=== PATIENT | female | born 1950 | race Caucasian/White ===

== ENCOUNTER → 2017-11-18 | Outpatient (CLI) | payer MEDICARE ==
[~2017-11-18] MED LIST: CETI10 PO; FLUT1SPR5 EACH NARE; LIPI40TA PO; LISI10TA3 PO; LISI40TA PO; TRAZ100T10 PO; ZOCO40TA PO; ZYRT10TA PO
[2017-11-18 11:03] LABS: AUTOMATED NEUTROPHIL # 3.1 TH/MM3 (1.8-7.7); BASOPHIL % 0.7 % (0.0-2.0); EOSINOPHIL # 0.3 TH/MM3 (0-0.4); EOSINOPHIL % 4.4 % (0.0-4.0); HEMATOCRIT 44.1 % (35.0-46.0); HEMOGLOBIN 14.7 GM/DL (11.6-15.3); LYMPH % 39.4 % (9.0-44.0); LYMPHOCYTE # 2.5 TH/MM3 (1.0-4.8); MEAN CELL VOLUME 88.4 FL (80.0-100.0); MEAN CORPUSCULAR HEMOGLOBIN 29.5 PG (27.0-34.0); MEAN CORPUSCULAR HGB CONC 33.3 % (32.0-36.0); MEAN PLATELET VOLUME 8.5 FL (7.0-11.0); MONO % 5.7 % (0.0-8.0); MONOCYTE # 0.4 TH/MM3 (0-0.9); NEUT % 49.8 % (16.0-70.0); PLATELET COUNT 238 TH/MM3 (150-450); RED BLOOD COUNT 4.99 MIL/MM3 (4.00-5.30); RED CELL DISTRIBUTION WIDTH 13.1 % (11.6-17.2); WHITE BLOOD COUNT 6.2 TH/MM3 (4.0-11.0)
[2017-11-18 12:36] LABS: BILIRUBIN, URINE NEG (NEG); BLOOD, URINE NEG (NEG); GLUCOSE,URINE NEG (NEG); KETONE, URINE NEG (NEG); NITRITE,URINE NEG (NEG); PH, URINE 6.5 (5.0-8.5); SQUAMOUS EPITHELIAL CELL URINE 1 /hpf (0-5); URINE COLOR LIGHT-YELLOW (YELLW/STRAW); URINE LEUKOCYTE ESTERASE NEG (NEG)
--- NOTE | 2017-11-19 16:14 | EKG ---
Date Performed: 11/18/2017 Time Performed: 10:53:44 PTAGE: 67 years EKG: SINUS BRADYCARDIA BORDERLINE ECG PREVIOUS TRACING : 11/02/2010 14.15 No significant change from previous tracing noted. DOCTOR: Trenton Gutierrez Interpretating Date/Time 11/19/2017 16:12:46
== END ==
LOC: CPRE 10:27
PROVIDERS: ATTEND Obstetrics & Gynecology
DX: Z01.810 Encounter for preprocedural cardiovascular examination (principal); Z01.812 Encounter for preprocedural laboratory examination; Z01.818 Encounter for other preprocedural examination; N81.9 Female genital prolapse, unspecified; R94.31 Abnormal electrocardiogram [ECG] [EKG]
CPT/HCPCS: 36415; 81001; 85025; 93005

== ENCOUNTER 2017-11-20 06:05 | Observation (INO) | payer MEDICARE ==
[~2017-11-20] VITALS: Ht 165.1 cm; Wt 76.0 kg
[~2017-11-20 06:05] MED LIST changes: -FLUT1SPR5 EACH NARE; -LISI40TA PO; -TRAZ100T10 PO; -ZOCO40TA PO; -ZYRT10TA PO
[2017-11-20] MEDS ORDERED: LACTATED RINGER'S 1000 ML IV PRN (06:30)
[2017-11-20] MEDS ORDERED: METOPROLOL TARTRATE 25 MG TAB PO PRN (06:30)
[2017-11-20] MEDS ORDERED: CHLORHEXIDINE GLUCONATE 2 % 1 PACK (2 CLOTHS) TOPICAL PRN (06:30)
[2017-11-20] MEDS ORDERED: POVIDONE IODINE 5% (ANTISEPSIS KIT) 4 APPLICATIONS EACH NARE PRN (06:30)
[2017-11-20] MEDS ORDERED: SODIUM CHLORID 0.9% 500 ML IV PRN (06:30)
[2017-11-20] MEDS ORDERED: TRAZ100T10 PO (06:48)
[2017-11-20] MEDS ORDERED: fentaNYL CITRATE 250 MCG/5 ML AMP ONE (07:00)
[2017-11-20] MEDS ORDERED: ACETAMINOPHEN 1000 MG/100 ML 100 ML IV ONE (07:00)
[2017-11-20] MEDS ORDERED: BUPIVACAINE HCL PF 0.5% 30 ML VIAL ONE (07:13)
[2017-11-20] MEDS ORDERED: GENTAMICIN SULFATE 80 MG/2 ML VIAL ONE (07:13)
[2017-11-20] MEDS ORDERED: ESTROGENS CONJUGATED VAG CREA 15 APPL/30 GM TUBE ONE (07:13)
[2017-11-20] MEDS ORDERED: MIDAZOLAM HCL 2 MG/2 ML VIAL ONE (07:33)
[2017-11-20] MEDS ORDERED: CEFAZOLIN INJ 2,000 MG in SODIUM CHLORIDE 0.9% INJ 100 ML IV ONE (08:00)
[2017-11-20] MEDS ORDERED: DO NOT ADM ANY ANTICOAGULANT DRUGS PRN (10:15)
[2017-11-20] MEDS ORDERED: SODIUM CHLORIDE 0.9% FLUSH 10 ML FLUSH IV FLUSH PRN (10:30)
[2017-11-20] MEDS ORDERED: ONDANSETRON HCL 4 MG/2 ML VIAL IVP PRN (10:30)
[2017-11-20] MEDS: LACTATED RINGER'S 1000 ML INJ 1,000 ML IV SCH ×2 (10:30→12:40)
[2017-11-20] MEDS ORDERED: SODIUM CHLORIDE 0.9% FLUSH 10 ML FLUSH IV FLUSH SCH (10:30)
[2017-11-20] MEDS: DOCUSATE SODIUM 100 MG CAP PO SCH ×2 (10:30→23:12)
[2017-11-20] MEDS ORDERED: *MEPERIDINE 25 MG INJ VIAL PERIprocedural Use ONLY ONE (10:39)
[2017-11-20] MEDS ORDERED: *ONDANSETRON 4 MG VIAL PERIprocedural Use ONLY ONE (10:39)
[2017-11-20] MEDS ORDERED: diphenhydrAMINE HCL 25 MG CAP PO PRN (10:45)
[2017-11-20] MEDS ORDERED: PROMETHAZINE HCL 25 MG TAB PO PRN (10:45)
[2017-11-20] MEDS ORDERED: PILL SPLITTER OTHER PRN (10:45)
[2017-11-20] MEDS ORDERED: LORazepam 0.5 MG TAB PO PRN (10:45)
--- NOTE | 2017-11-20 10:57 | MP ---
cc: Ralf Harrell MD DATE OF OPERATION: 11/20/2017 PREOPERATIVE DIAGNOSIS: Patient with symptomatic uterine prolapse with large cystocele, small rectocele. PROCEDURE: Transvaginal hysterectomy with anterior colporrhaphy, cystourethroscopy. POSTOPERATIVE DIAGNOSIS: Symptomatic uterine prolapse with large cystocele, small rectocele. SURGEON: MD Julio Cesar ANESTHESIA: General with endotracheal intubation. ESTIMATED BLOOD LOSS: 75 cc. DRAINS: Avila to gravity. OPERATIVE FINDINGS: The patient had complete uterine prolapse with significant atrophy. She had a grade 3 cystocele and a grade 1 rectocele. PROPHYLACTIC ANTIBIOTIC: The patient received Ancef 2 grams IV prior to the procedure. INDICATIONS FOR PROCEDURE: The patient with a known history of symptomatic prolapse, was tried on conservative management with use of the pessary. She declined after difficulty with use of the pessary and requested surgical repair. Risks, benefits, complications and failure were discussed. The patient was consented and signed the consent freely. PROCEDURE DESCRIPTION: The patient was taken to the operating room in stable condition and underwent general anesthesia with endotracheal intubation. She was carefully positioned in dorsal lithotomy position using candy cane stirrups. She had sequentials placed on lower extremities for VTE prophylaxis. She was prepped and draped. A timeout was conducted and agreed by all present in the room. Bimanual exam demonstrated the preoperative findings noted above. The patient had very minimal amount of prolapse posteriorly, significant amount of the prolapse was anterior compartment. After identifying the anatomic landmarks, the posterior cul-de-sac was entered, after elevating the cervix with a single-tooth tenaculum. A linear incision was made with a Bovie and entry into the cul-de-sac and the peritoneal cavity was made. Curved Narayan clamps were used to take the pedicles in a serial fashion bilaterally, each pedicle secured with a transfixing suture of 2-0 Vicryl. The anterior compartment was then entered. This allowed dissection of the uterine artery and vein bilaterally, again using curved Narayan clamps with a transfixing suture of 2-0 Vicryl and, then once the uterus was brought through the colporrhaphy incision, the uteroovarian pedicle was isolated. The ovaries were attached high in the pelvis and were not visible, which negated the ability to remove them vaginally. The pedicle was secured with a transfixing suture of 2-0 Vicryl and then the uterine specimen was passed off the operative field. All pedicle sites were dry. Examination of the cuff was dry. The peritoneum was then closed with a pursestring type suture using a 3-0 Vicryl to close the enterocele defect and then the vaginal cuff was closed with an interrupted suture of 2-0 Vicryl. The uterosacral ligaments were secured and reapproximated. For added support these were transfixed and tied together. The vaginal cuff was inspected. No active bleeding was noted. The anterior repair was then conducted. 0.25% plain Marcaine was used to inject subcutaneously. Then, a linear incision was made over the midline cystocele and then dissecting the vaginal mucosa away reducing the defect and then closing the defect with interrupted sutures of 2-0 Monocryl on a UR-6 needle. Reduction of the defect was complete without difficulty. Good result was noted. The redundant vaginal mucosa was trimmed and then the defect was closed with a running suture of 3-0 Vicryl. The vaginal cuff was dry. Again, irrigation was performed. No active bleeding or hematoma. The Avila catheter was removed. A 70-degree cystourethroscopy was then conducted using normal saline. Examination of the bladder was intact. No difficulty in the exam . Both ureteral orifices were peristalsing normally. The bladder was intact. The urethra was intact. There was no injury, laceration or suture placement. At the completion of the cystourethroscopy the Avila catheter was reinserted. A 2-inch vaginal packing with Premarin cream was placed in the vaginal vault at the end of the case. Final count was correct. The patient was stable, she was taken to the recovery on room air. MD BARRINGTON Glez/RUBEN , 10:17 AM , 10:55 AM
[2017-11-20] MEDS ORDERED: *PROMETHAZINE 25 MG/ML VIAL PERIprocedural use ONLY ONE (11:06)
[2017-11-20 11:52] VITALS: BP 101/49; PULSE 50; RESP 14; TEMP 97.6; O2SAT 95
[2017-11-20 12:43] VITALS: RESP 16
[2017-11-20] MEDS ORDERED: IBUPROFEN 600 MG TAB PO PRN (13:00)
[2017-11-20] MEDS: GABAPENTIN 100 MG CAP PO SCH ×2 (13:00→18:45)
[2017-11-20] MEDS ORDERED: ONDANSETRON HCL 4 MG/2 ML VIAL IV PUSH ONE (14:15)
[2017-11-20] MEDS: FAMOTIDINE 20 MG TAB PO SCH ×2 (14:24→23:13)
[2017-11-20] MEDS: KETOROLAC TROMETHAMINE 30 MG/ML (IVP) VIAL IVP PRN ×2 (16:10→23:14)
[2017-11-20 16:15] VITALS: BP 113/55; PULSE 59; RESP 16; TEMP 98; O2SAT 97
[2017-11-20 20:00] VITALS: BP 101/49; PULSE 70; RESP 17; TEMP 98.2
[2017-11-20] MEDS ORDERED: ZOLPIDEM TARTRATE 5 MG TAB PO PRN (21:00)
[2017-11-21 00:02] VITALS: BP 122/62; PULSE 64; RESP 17; TEMP 98.3
[2017-11-21 04:07] VITALS: BP 115/51; PULSE 67; RESP 18; TEMP 98.3
[2017-11-21] MEDS: KETOROLAC TROMETHAMINE 30 MG/ML (IVP) VIAL IVP PRN (05:01)
[2017-11-21 06:05] LABS: AUTOMATED NEUTROPHIL # 8.1 TH/MM3 (1.8-7.7); BASOPHIL % 0.2 % (0.0-2.0); EOSINOPHIL # 0.2 TH/MM3 (0-0.4); EOSINOPHIL % 1.6 % (0.0-4.0); HEMATOCRIT 38.7 % (35.0-46.0); HEMOGLOBIN 12.8 GM/DL (11.6-15.3); LYMPH % 20.4 % (9.0-44.0); LYMPHOCYTE # 2.3 TH/MM3 (1.0-4.8); MEAN CELL VOLUME 88.7 FL (80.0-100.0); MEAN CORPUSCULAR HEMOGLOBIN 29.3 PG (27.0-34.0); MEAN CORPUSCULAR HGB CONC 33.1 % (32.0-36.0); MEAN PLATELET VOLUME 8.9 FL (7.0-11.0); MONO % 5.9 % (0.0-8.0); MONOCYTE # 0.7 TH/MM3 (0-0.9); NEUT % 71.9 % (16.0-70.0); PLATELET COUNT 214 TH/MM3 (150-450); RED BLOOD COUNT 4.36 MIL/MM3 (4.00-5.30); RED CELL DISTRIBUTION WIDTH 13.1 % (11.6-17.2); WHITE BLOOD COUNT 11.3 TH/MM3 (4.0-11.0)
[2017-11-21 06:31] LABS: CREATININE 0.7 MG/DL (0.50-1.00)
[2017-11-21 08:13] VITALS: BP 139/60; PULSE 61; RESP 16; TEMP 97.6; O2SAT 96
[2017-11-21] MEDS: FAMOTIDINE 20 MG TAB PO SCH (08:52)
[2017-11-21] MEDS: GABAPENTIN 100 MG CAP PO SCH (08:52)
[2017-11-21] MEDS: DOCUSATE SODIUM 100 MG CAP PO SCH (10:10)
--- NOTE | 2017-11-21 10:36 | HHI.PR ---
Subjective Remarks POD#1. S/P TVH, anterior repair. Cystourethroscopy.Doing well, pain is well controlled, eating well. Voiding well, no vaginal drainage. Objective Vital Signs Vital Signs Date Time Temp Pulse Resp B/P (MAP) Pulse Ox O2 Delivery O2 Flow Rate FiO2 11/21/17 08:13 97.6 61 16 139/60 (86) 96 11/21/17 04:07 98.3 67 18 115/51 (72) 11/21/17 00:02 98.3 64 17 122/62 (82) 11/20/17 20:00 98.2 70 17 101/49 (66) 11/20/17 16:15 98.0 59 16 113/55 (74) 97 11/20/17 12:43 16 11/20/17 11:52 97.6 50 14 101/49 (66) 95 11/20/17 11:00 56 18 109/56 (73) 100 Room Air 11/20/17 10:45 57 18 102/55 (71) 99 Nasal Cannula 4 I/O 11/20/17 11/20/17 11/20/17 11/21/17 11/21/17 11/21/17 07:00 15:00 23:00 07:00 15:00 23:00 Intake Total 1300 ml Output Total 275 ml 250 ml 550 ml Balance 1025 ml -250 ml -550 ml Intake IV Total 1300 ml Output Urine Total 200 ml 250 ml 550 ml Estimated Blood Loss 75 ml Result Diagram: 11/21/17 0535 11/21/17 0535 Objective Remarks Chest is clear, regular rate and rhythm. Abdomen is soft and non-distended. Incision is clean and dry. Ext no CCE. A/P Assessment and Plan Post Op Day 1 Doing well; ADLs discussed Home today and return to office in one weeks. Ralf Harrell MD Nov 21, 2017 10:36
--- NOTE | 2017-11-21 10:37 | HHI.DCPOC ---
Discharge Care Plan Your Health Problems Are: Abdominal pain Fever, temperature>100.4 Nausea and/or vomiting Pelvic pain Shortness of breath Vaginal bleeding Report Symptoms to Your Doctor -Temperature above 100.5 degrees -Redness, of incision or excessive or foul smelling drainage -Unusual pain or calf pain -Increased vaginal bleeding -Painful or difficulty urinating -Feelings of extreme sadness or anxiety after 2 weeks Goals to Promote Your Health * To prevent worsening of your condition and complications * To maintain your health at the optimal level Directions to Meet Your Goals Take your medications as prescribed Follow your dietary instruction Follow activity as directed Ensure plenty of rest for recovery Drink fluids for hydration Keep your appointments as scheduled Take your immunizations and boosters as scheduled If your symptoms worsen call your PCP, if no PCP go to Urgent Care Center or Emergency Room Smoking is Dangerous to Your Health. Avoid second hand smoke Call the 24-hour crisis hotline for domestic abuse at Ralf Harrell MD Nov 21, 2017 10:37
== END 2017-11-21 11:07 | disposition home or self-care (01) ==
LOC: HSDC 06:05 → HSDI 10:08 → H1EA 11:11
PROVIDERS: ADMIT Obstetrics & Gynecology; ATTEND Obstetrics & Gynecology
DX: N81.4 Uterovaginal prolapse, unspecified (principal); N84.0 Polyp of corpus uteri; D25.9 Leiomyoma of uterus, unspecified; N83.8 Other noninflammatory disorders of ovary, fallopian tube and broad ligament; N88.8 Other specified noninflammatory disorders of cervix uteri; I10 Essential (primary) hypertension; E78.5 Hyperlipidemia, unspecified; J45.909 Unspecified asthma, uncomplicated
CPT/HCPCS: 01962; 58270; 82565; 85025; 88307; 94150; 96374; 96375; 96376; G0378; J0131; J0690; J1885; J2175; J2250; J2405; J2550; J3010; J7120; 88305; J1580